=== PATIENT | male | born 1935 | race Caucasian/White ===

== ENCOUNTER → 2023-07-27 09:44 | Outpatient (REF) | payer OTHER, SELFPAY | LOC: HWRCS 09:44 | PROVIDERS: ATTENDING PHYSICIAN Family Medicine | DX: R42 Dizziness and giddiness (principal); I51.89 Other ill-defined heart diseases | CPT/HCPCS: 93306 ==

== ENCOUNTER → 2023-09-03 12:36 | Outpatient (REF) | payer OTHER, SELFPAY | LOC: RAD 12:36 | PROVIDERS: ATTENDING PHYSICIAN Family Medicine | DX: H54.7 Unspecified visual loss (principal); G25.0 Essential tremor | CPT/HCPCS: 70450 ==

== ENCOUNTER → 2023-09-21 12:29 | Outpatient (REF) | payer OTHER, SELFPAY | LOC: HWRAD 12:29 | PROVIDERS: ATTENDING PHYSICIAN Family Medicine | DX: H54.7 Unspecified visual loss (principal) | CPT/HCPCS: 93880 ==

== ENCOUNTER → 2023-10-12 11:37 | Outpatient (REF) | payer OTHER, SELFPAY | LOC: RAD 11:37 | PROVIDERS: ATTENDING PHYSICIAN Surgery Vascular Surgery; FAMILY PHYSICIAN Family Medicine | DX: I65.23 Occlusion and stenosis of bilateral carotid arteries (principal) | CPT/HCPCS: 70496; 70498; Q9967 ==

== ENCOUNTER 2023-11-01 09:03 | Inpatient (IN) | payer OTHER, SELFPAY ==
[2023-10-25 09:35] LABS: % Basophils 0.7 % (0-2); % Eosinophils 1.8 % (0-6); % Immature Granulocytes 0.3 % (0-0.5); % Lymphocytes 19.1 % (20.5-51.1); % Monocytes 8.1 % (1.7-9.3); Absolute Basophils 0.1 10^3/uL (0-0.2); Absolute Eosinophils 0.1 10^3/uL (0-0.7); Absolute Lymphocytes 1.3 10^3/uL (1.2-3.4); Absolute Monocytes 0.6 10^3/uL (0.1-0.6); Absolute Neutrophils 4.8 10^3/uL (1.4-6.5); Hematocrit 42.1 % (39.0-52.0); Hemoglobin 14.4 g/dL (13.0-18.0); Mean Corp Hgb Conc. 34.2 g/dL (33.0-37.0); Mean Corpuscular Hgb 30.3 pg (27.0-31.0); Mean Corpuscular Volume 88.6 fL (80.0-94.0); Mean Platelet Volume 11.1 fL (7.4-10.4); Nucleated Red Blood Cells % 0 % (-); Platelet Count 198 10^3/uL (130-400); Red Blood Cell Count 4.75 10^6/uL (4.70-6.10); Red Cell Dist. Width 13.4 % (11.5-14.5); White Blood Cell Count 6.8 10^3/uL (4.8-10.8)
[2023-10-25 09:47] LABS: INR 1.03; PT 13.5 Sec (11.4-14.6)
[2023-10-25 09:50] LABS: Blood Urea Nitrogen 22 mg/dl (9-20); Calcium 9.3 mg/dl (8.4-10.2); Carbon Dioxide 28 mmol/L (22-30); Chloride 105 mmol/L (98-107); Glucose 131 mg/dl (70-99); Potassium 4.9 mmol/L (3.5-5.1); Sodium 141 mmol/L (135-145); eGFR 52.84
[2023-10-25 12:20] VITALS: BMI 28.8
--- NOTE | 2023-10-26 09:56 | PTCARENOTE ---
Abnormal chest x-ray (10/25/23); Rosario at 's office was notified.
--- NOTE | 2023-10-26 15:33 | PTCARENOTE ---
Abnormal chest x-ray from 10/25/23 was reviewed by , no actions requested.
[2023-11-01] VITALS (17 sets, daily range): BP systolic 80–130; BP diastolic 34–81; BMI 27.3
[2023-11-01] MEDS: BACTROBAN NASAL 1 GRAM NASAL (09:54)
[2023-11-01] MEDS: PERIDEX 0.12% ORAL RINSE 15 ML PO (09:54)
[2023-11-01] MEDS: VANCOCIN 300 MG IV (09:57)
[2023-11-01] MEDS: VANCOCIN 300 ML IV (09:57)
[2023-11-01] MEDS: NSS 500 IV (09:58)
--- NOTE | 2023-11-01 13:44 | W.SUR.PREOP ---
Pre-Operative Surgical Note
-
I have examined this patient prior to the performance of the scheduled procedure.
The patient's condition is unchanged from the time of the current History and
Physical and the patient is able to undergo the scheduled procedure.
--- NOTE | 2023-11-01 17:01 | W.SUR.POST ---
Surgical Immediate Post Op
Note
Pre Op Diagnosis: Carotid stenosis
Post Op Diagnosis: Carotid stenosis
Procedure Performed: Right carotid endarterectomy with bovine pericardial patch angioplasty with EEG monitoring
Primary Surgeon: Hong Martinez MD
Assist: Mare Lopez FREIGHT RATE CLERK-C
Anesthesia: GETA
Estimated Blood Loss: 20 mL
Fluids: See anesthesia flowsheet
Drains/Shunts: N/A
Specimens/Cultures: Right carotid plaque
Doppler/Duplex/Angio (Y/N): Y
Complications: None
Operative Findings: Upon waking from anesthesia patient obeyed commands in bilateral upper and lower extremities
[2023-11-01] MEDS: NSS 1000 IV (17:37)
[2023-11-01 17:42] LABS: Glucose - Point of Care 134 mg/dl (70-99)
[2023-11-01 17:43] LABS: Hematocrit 37.6 % (39.0-52.0); Mean Corp Hgb Conc. 34.6 g/dL (33.0-37.0); Mean Corpuscular Hgb 30.4 pg (27.0-31.0); Mean Corpuscular Volume 87.9 fL (80.0-94.0); Mean Platelet Volume 10.2 fL (7.4-10.4); Platelet Count 174 10^3/uL (130-400); Red Blood Cell Count 4.28 10^6/uL (4.70-6.10); Red Cell Dist. Width 13.7 % (11.5-14.5); White Blood Cell Count 10.6 10^3/uL (4.8-10.8)
[2023-11-01 17:56] LABS: Blood Urea Nitrogen 16 mg/dl (9-20); Calcium 8.1 mg/dl (8.4-10.2); Carbon Dioxide 23 mmol/L (22-30); Chloride 109 mmol/L (98-107); Estimated Creatinine Clearance 51 ml/min; Glucose 142 mg/dl (70-99); Potassium 4.5 mmol/L (3.5-5.1); Sodium 137 mmol/L (135-145); eGFR > 60.00
[2023-11-01 17:58] LABS: INR 1.24; PT 15.6 Sec (11.4-14.6)
[2023-11-01 17:59] LABS: APTT 35.9 Sec (23.4-35.0)
--- NOTE | 2023-11-01 18:38 | PTCARENOTE ---
Received pt from PACU s/p R CEA. Neuro assessment WNL. Pt c/o mild R neck pain, refusing meds. SBP within goal range. 2L NC applied. Sinus bradycardia noted. L radial a-line correlating with NIBP. Oriented to ICU. at bedside. Plan of care
discussed.
--- NOTE | 2023-11-01 18:53 | OR.RPT ---
Operative Report
Operative Report
PROCEDURE DATE: 11/01/2023
Preoperative diagnosis: Symptomatic right carotid artery stenosis.
Postoperative diagnosis: Same
Procedure: Right carotid endarterectomy with bovine pericardial patch angioplasty and intraoperative EEG/SSEP monitoring.
Surgeon: Juan
Lead Nurse: Mare Lopez GUEST SERVICES MANAGER, required for all aspects of procedure including assistance with traction/countertraction, following of suture line, assistance with closure.
Complications: None
Anesthesia: General
Indications for procedure:
Symptomatic right carotid stenosis with repeated episodes of amaurosis. Risk/benefits/alternatives of revascularization were also discussed. Patient understood all wish to proceed with right carotid endarterectomy.
Description of procedure:
Patient was identified brought to the operating room placed on the table in supine position. After the adequate administration of anesthesia and perioperative antibiotics he was prepped and draped in the standard surgical fashion. A standard
preoperative timeout was undertaken and everybody was in agreement the plan. A standard longitudinal incision was made in the right neck that was carried through the skin subcutaneous tissue. Using the electrocautery dissection was carried through
the platysma muscle layer and then alongside the anterior medial border of the sternocleidomastoid muscle. Then using a combination of sharp dissection with the Metzenbaum scissors and electrocautery I dissected along the anterior medial border of
the internal jugular vein. The common facial vein branch was ligated between silk ties and then divided. In addition there was a second smaller vein branch just caudad that was also ligated between silk ties and divided. I then deepened my
retraction. The common carotid artery was identified and carefully dissected away from the surrounding structures take great care to avoid any injury to the structures. A vessel loop was passed around it which was double looped, but not yet
tightened. Note the vagus nerve was clearly visualized and protected from harm's way. I then continued my dissection up the common carotid artery to the bulb staying only on the anterior surface of the carotid artery. Then I carried the
dissection up to the internal carotid artery and then to the distal internal carotid artery. I identified where it was soft and carefully circumferentially dissected the internal carotid artery with minimal mobilization and passed a vessel loop
around it. Note where I dissected to be soft, was beyond the main plaque in the proximal internal carotid artery as well as a secondary plaque about a centimeter distal to that as noted on the CT scan. I was sure to gain exposure distal to that
aspect. Note the hypoglossal nerve was not visualized in her field, and was felt to be more cephalad. The patient was given an appropriate dose of heparin 8500 units. Next I dissected the anterior surface of the external carotid artery and
superior thyroid branches. These were then carefully circumferentially dissected with minimal mobilization and vessel loops passed around these which were double looped but not yet tightened. After 3 minutes of heparin circulation time and
confirmation of optimization of the blood pressure with my anesthesiology colleagues, I clamped the distal internal carotid artery where it was soft. There was no immediate EEG or SSEP changes. After 1 minute of test clamp time there was no
changes noted. Therefore at this point, the vessel loops on the external carotid artery and superior thyroid branches were tightened and the common carotid artery was clamped where it was soft proximally. An arteriotomy was made on the common
carotid artery with an 11 blade and extended using a Spence scissor. I extended the arteriotomy onto the mid to distal internal carotid artery. There was a mixed plaque with heavy calcified portions peripherally and slightly softer centrally
resulted in a significant stenosis. A [place] was then used to endarterectomized the plaque. An endarterectomy plane was created, and the plaque was then endarterectomized. Distally I feathered the plaque out to a nice clean endpoint in the distal
internal carotid artery. Next I endarterectomized the intima back to somewhat normal intima in the common carotid artery, and the intima was cut flush there. I then grasped the plaque and everted plaque out of the origin of the external carotid
artery. The plaque was then sent off for specimen. In order to get back to somewhat more normal intima on the common carotid artery, I had to dissect more proximally in the common carotid artery by extending my incision slightly as there was
friable plaque in the initial endpoint. Once I did this and reposition my clamp slightly more proximally, I was then able to achieve a better endpoint that was nicely adherent. The origin of the external carotid artery was carefully visualized and
any fine debris were removed with fine forceps. Proximal and distal endpoints were then carefully inspected. Any fine debris was removed with fine forceps, and the intima was noted to be nicely adherent proximally distally. Next any fine debris
were removed throughout the endarterectomy bed with fine forceps. Interrupted 7-0 Prolene tacking sutures were placed to tack the distal endpoint. I then flushed heparinized saline. I was very satisfied. Then, I used a bovine pericardial patch to
sew a long patch angioplasty with a running 6-0 Prolene suture. Prior to completing and tying down my suture line, I backbled sequentially each branch and reclamped each branch prior to unclamping the next branch. I then irrigated with heparinized
saline. Then I completed and tied down my suture line. We then restored flow in the common carotid and external carotid arteries. Finally, we released flow in the internal carotid artery. There was excellent pulsatile flow in all 3 vessels.
There was an excellent Doppler signal in the internal carotid artery distal to the patch with a good normal low resistance Doppler signal. There was a good Doppler signal in the external carotid artery as well. 6-0 Prolene [id number] sutures
were placed along any bleeding points along the suture line. Protamine was given to reverse the heparin. Hemostasis was completely achieved. We then irrigated and confirmed full hemostasis. I then closed in layers with 2-0 Vicryl layer to
reapproximate the sternocleidomastoid muscle, followed by 3-0 Vicryl platysma muscle running layer, followed by 4 Monocryl subcuticular stitch. Dermabond was applied. The patient tolerated procedure well. He awoke moving all extremities to
command with tongue in the midline.
[2023-11-01] MEDS: HEPARIN 5000 UNITS SC (19:41)
[2023-11-01] MEDS: NEO-SYNEPHRINE 250 IV (19:41)
[2023-11-01] MEDS: ROXICODONE 5 MG PO (19:42)
--- NOTE | 2023-11-01 20:00 | PTCARENOTE ---
pt AAOx4, neuro assessment Q1H WNL, c/o discomfort to R neck, PRN meds given see ALBERT, SB on monitor, Layla in place and zeroed, BP with systolic 88, Nicholas was started per orders, 2L NC, denies SOB, 1800 diabetic diet, +BS, urinal at bedside voided 350
at change of shift, R neck surgical incision intact with dermabond, call rizo in reach.
[2023-11-01] MEDS: SYMBICORT 80/4.5 MCG INHALER INH (20:58)
[2023-11-01 21:51] LABS: Glucose - Point of Care 162 mg/dl (70-99)
[2023-11-02] VITALS (22 sets, daily range): BP systolic 86–126; BP diastolic 36–92; BMI 28.4
--- NOTE | 2023-11-02 | PTCARENOTE ---
no changes from prior assessment, pt denies pain and SOB, neuro checks remain WNL, [place] zeroed and remains on initial dose amy, call rizo in reach.
--- NOTE | 2023-11-02 04:00 | PTCARENOTE ---
no change from prior assessment/note.
[2023-11-02 04:18] LABS: Hematocrit 38.5 % (39.0-52.0); Hemoglobin 13.3 g/dL (13.0-18.0); Mean Corp Hgb Conc. 34.5 g/dL (33.0-37.0); Mean Corpuscular Hgb 30.7 pg (27.0-31.0); Mean Corpuscular Volume 88.9 fL (80.0-94.0); Mean Platelet Volume 10.4 fL (7.4-10.4); Platelet Count 214 10^3/uL (130-400); Red Blood Cell Count 4.33 10^6/uL (4.70-6.10); Red Cell Dist. Width 13.7 % (11.5-14.5); White Blood Cell Count 9.7 10^3/uL (4.8-10.8)
[2023-11-02 04:30] LABS: INR 1.17; PT 14.9 Sec (11.4-14.6)
[2023-11-02 04:31] LABS: APTT 35.7 Sec (23.4-35.0)
[2023-11-02 04:44] LABS: Blood Urea Nitrogen 19 mg/dl (9-20); Calcium 8.8 mg/dl (8.4-10.2); Carbon Dioxide 20 mmol/L (22-30); Chloride 108 mmol/L (98-107); Estimated Creatinine Clearance 46 ml/min; Glucose 141 mg/dl (70-99); Potassium 4.6 mmol/L (3.5-5.1); Sodium 136 mmol/L (135-145); eGFR > 60.00
[2023-11-02] MEDS: SYNTHROID 88 MCG PO (05:36)
[2023-11-02] MEDS: NSS 1000 IV (05:36)
--- NOTE | 2023-11-02 07:11 | CON.INTV ---
Consultation
Consultation Request
Date/Time Consultation Requested: 11/01/23
Date/Time Consultation Performed: 11/02/23
Performing Provider: Lisa
Reason for Consultation: ICU
Medical History
-
History of Present Illness:
Patient is a 88-year-old male with previous history of hypertension, pulmonary fibrosis post COVID, bilateral carotid stenosis presenting for elective carotid endarterectomy. He has noted symptoms including right eye visual changes but denies any
previous CVA or TIA history. Underwent procedure 11/01/23 without complication. Postoperatively, admitted to ICU for further management.
Past Medical History
Past Medical History: Other (see list below)
Social History
Tobacco: Non-smoker
Alcohol: None
Drug: None
Family History
Family History: Reviewed & Not Pertinent
Allergies / Home Medications
Allergies
Allergy/AdvReac Type Severity Reaction Status Date / Time
Penicillins Allergy Rash Verified 10/24/23 08:23
Home Medications
�Medication �Instructions �Recorded �Confirmed �Last Taken �Type
bupropion HCl 100 mg tablet 100 mg PO TID mental health 09/05/21 11/01/23 10/31/23 20:00 History
levothyroxine 88 mcg tablet 88 mcg PO DAILY AT 0700 Thyroid 09/05/21 11/01/23 11/01/23 07:30 History
tamsulosin 0.4 mg capsule 0.4 mg PO DAILY Urinary issue 09/05/21 11/01/23 10/31/23 07:30 History
albuterol sulfate 90 mcg/actuation 2 puff inhalation Q6H PRN SOB 03/12/23 11/01/23 Unknown History
aerosol inhaler
fluticasone fur. 100 mcg-umeclid 1 inh inhalation PRN PRN SOB 03/12/23 10/24/23 Unknown History
62.5 mcg-vilant 25 mcg
inhalat.powder (Trelegy Ellipta)
omeprazole 20 mg capsule,delayed 20 mg PO DAILY 03/12/23 11/01/23 11/01/23 07:30 History
release
rosuvastatin 20 mg tablet 20 mg PO DAILY 03/12/23 11/01/23 10/31/23 07:30 History
Mullein 1 cap PO BID Respiratory 10/24/23 10/24/23 Unknown History
aspirin 81 mg chewable tablet 81 mg PO DAILY Blood Clot 11/01/23 11/01/23 Unknown History
Prevention/Tx
diazepam 5 mg tablet 5 mg PO BIDPRN PRN anxiety 11/01/23 11/01/23 Unknown History
metformin 500 mg tablet,extended 500 mg PO QPM Diabetes 11/01/23 11/01/23 10/31/23 History
release 24 hr
Review of Systems
Vitals / Labs / Diagnostic Testing
Vital Signs
Temp Pulse Resp BP Pulse Ox
98.1 F 56 14 112/53 98
11/02/23 03:12 11/02/23 06:45 11/02/23 06:45 11/02/23 00:00 11/02/23 06:45
Lab Data
11/02/23 04:11
11/02/23 04:11
Laboratory Results
11/01/23 11/02/23
17:36 04:11
PT 15.6 H 14.9 H
INR 1.24 1.17
APTT 35.9 H 35.7 H
Diagnostic Testing:
Physical Exam
-
HEENT: Normocephalic, Anicteric and Moist Mucous Membranes
Cardiovascular: S1/S2 and Regular Rhythm
Respiratory: Clear and Non-Labored Respirations
GI: Soft, Non Distended and Non Tender
Neurology: Awake, Alert, Oriented, AO x 3 and No Motor Deficits
Skin: Warm, Dry and Good Color
General: Comfortable and Other (NAD)
Assessment
-
Patient is a 88-year-old male with previous history of hypertension, pulmonary fibrosis post COVID, bilateral carotid stenosis presenting for elective carotid endarterectomy. He has noted symptoms including right eye visual changes but denies any
previous CVA or TIA history. Underwent procedure 11/01/23 without complication. Postoperatively, admitted to ICU for further management.
Bilateral carotid disease status post right CEA 11/01/2023
Amaurosis fugax
Hyperglycemia
Conditions [employer]:
COVID infection July 2021
COPD, last seen Dr Vanessa 09/16/23, maintained on Trelegy 200
Pulmonary fibrosis
Hypothyroidism
Depression
Knee replacement
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
Former smoker
Allergy to penicillins
Plan:
Patient is s/p R CEA by vascular surgery service, POD #1
Continue observation following procedure
Follow neurovascular checks per protocol
Follow BP monitoring and parameters as set by primary team
Cardiac history noted
Monitor on telemetry
Pain control per protocol
RASS goal 0
Prior history of pulmonary disease includes ILD, COPD
CXR reviewed indicating no acute disease/minimal subpleural fibrosis noted
Can resume home inhalers
Prior PFTs reviewed indicating stake mild obstruction, but excellent for his age
Encouraged IS
Diet advancement per protocol
Aspiration precautions
GI prophylaxis if indicated for stress ulcer prevention in the critically ill
Creat at baseline, follow UO
Critical I/Os
Void trials
Replete electrolytes as needed
No signs/symptoms suspicious for infectious etiology at this time
Will observe off antibiotics for now
Follow temperatures/CBC
Hb and platelets postoperatively stable
DVT prophylaxis recommended if not contraindicated based on procedural history -- heparin SQ and mechanical SCDs
Encouraged OOB/PT/OT/ambulation once cleared by surgical team
Discharge planning per team
Diagnostic Data
Chest X-Ray 11/01/23- No acute cardiopulmonary process.
05-05 (portable) c/w 05-02 (PA/lat): Initial films with increased reticular pattern at R field, R>L diffuse GG like infiltrate, and L basilar anterocardial fibrotic changes. Current films with less dense GG at R field.
CTA chest 09-08: IMPRESSION: There is no pulmonary embolism. There are moderate predominantly subpleural emphysematous changes throughout both lungs. There is moderate predominantly subpleural interstitial airspace disease throughout the lower two
thirds of the right hemithorax as well as in the lingula which more likely is chronic fibrosis than acute pneumonia.
MY REVIEW: agree with above, I will add that considering reported COVID infection in July 2021, the above findings will reflect rather more chronic etiology, most likely ill-defined ILD (not IPF/UIP) superimposed to emphysema and trace evidence of
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
LUCAS doppler: N/A
Echo: 07/27/23- Normal left ventricular size and systolic function. Mild concentric left ventricular hypertrophy. No regional wall motion abnormalities are seen. LV ejection fraction is 55-60% by visual assessment. Normal diastolic function. Normal
right ventricular size and function. Moderate aortic stenosis. Peak/mean gradients across the aortic valve are 36/19 mmHg. The aortic valve by the Continuity equation is calculated at 1.0 cm sq using an LVOT diameter of 2.1 cm. Compared to the
previous echo 11/23/21, there is little significant change.
PFT's: 09/25/23: FEV1 2.19L 96%, FVC 3.68L 110%, ratio 0.59 (mild obstruction)
PFT 2022 DLCO 47%, 6MWT O2 miriam 96% on RA
Reports and relevant images were personally reviewed.
-----
Critical Care time 55 mins -- The patient is admitted for acute critical illness for the treatment of vital organ failure and/or prevention of further life-threatening conditions. Total care includes time spent in review of history, physical exam,
medications, hemodynamic/ventilator parameters, laboratory data, imaging and discussion with house staff, pharmacy, respiratory therapy, tax director, and nursing.
[2023-11-02] MEDS: SPIRIVA RESPIMAT 2.5 MCG 2 PUFF INH (07:18)
[2023-11-02] MEDS: SYMBICORT 80/4.5 MCG INHALER 2 PUFF INH (07:18)
[2023-11-02 07:37] LABS: Glucose - Point of Care 121 mg/dl (70-99)
[2023-11-02] MEDS: FLOMAX 0.400000000000000022 MG PO (07:46)
[2023-11-02] MEDS: CRESTOR 20 MG PO (07:46)
[2023-11-02] MEDS: PROTONIX 40 MG PO (07:46)
[2023-11-02] MEDS: WELLBUTRIN XL (24 hour extended release) 150 MG PO (07:46)
[2023-11-02] MEDS: HEPARIN 5000 UNITS SC (07:47)
--- NOTE | 2023-11-02 08:42 | W.PN.VS ---
Addendum entered and electronically signed by Hong Martinez MD 11/02/23 11:44:
Seen and examined with OSIEL Lopez earlier today. This is a late entry. Agree with findings as noted below. Patient was without significant complaints. Right neck incision clean dry and intact, neck is soft, no hematoma. Neurologically no focal
deficits, moves all extremities well, tongue midline. Plan/as discussed and noted below.
Original Note:
Today's Communication / Plan
-
Patient seen and examined at bedside with Dr. Hong Martinez, below plan reviewed with attending
Assessment/Plan
-
Assessment: 88-year-old male POD #1 right carotid endarterectomy
Plan:
Discontinue arterial line once Ayaz-Synephrine weaned off as patient tolerates
Advanced diet to diabetic
OOB to chair with progression ambulation as tolerated
Discontinue IV fluids
Possible discharge later today
Subjective Data
-
Date of Service: November 02, 2023
Patient seen and examined at bedside, offers no complaints. Denies nausea, vomiting, fever, and chills. Tolerating p.o. liquids. Denies unilateral weakness, vision changes, speech abnormalities, and headache.
Objective Data
-
Vital Signs
Temp Pulse Resp BP Pulse Ox
97.8 F 77 20 112/53 98
11/02/23 07:49 11/02/23 07:20 11/02/23 07:20 11/02/23 00:00 11/02/23 07:20
Intake and Output
11/01/23 11/02/23 11/03/23
06:59 06:59 06:59
Intake Total 990 / 990
Output Total 850 / 850
Balance 140 / 140
Intake:
Oral fluids 30 / 30
IV fluids (Total) 960 / 960
AYAZ 60 / 60
NSS 900 / 900
Output:
Urine, Voided 850 / 850
Lab Results
11/02/23 04:11
11/02/23 04:11
Calcium 8.8 mg/dl (8.4-10.2) 11/02/23 04:11
Physical Exam
-
No apparent distress, resting in bed comfortably
Right neck incision CDI, no evidence of hematoma, face symmetrical, tongue midline
No tachycardia
No dyspnea on room air
ABD nontender and nondistended
Bilateral upper extremities and lower extremities with equal strength
[2023-11-02 11:52] LABS: Glucose - Point of Care 101 mg/dl (70-99)
--- NOTE | 2023-11-02 12:07 | CM ---
CM following re: discharge planning.
Discussed in Rounds, reviewed pt's chart, met with pt.
Pt is an 88 year old male, admitted with primary dx of POD #1 right carotid endarterectomy.
Pt reports he lives with spouse in a rancher style house, 5+6 steps to enter, has 2 supportive children. 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 No DME, VN or SNF history.
Per Vascular surgery, pt most likely will be discharged home today. pt is awre and he stated his BP runs low and it is his baseline. IMM reviewed, placed on chart, pt has a copy.
PCP: Caroline Mendoza
Pharmacy: [facility]
D/C plan: home no needs. Spouse to transport.
--- NOTE | 2023-11-02 12:17 | PTCARENOTE ---
pt awake and alert , NSR on monitor, BP 136/58 on phenylephrine gtt the am , he was weaned off at 0930 , his current blood pressure is 87/48 , he stated he does not drink much at home and prior to his surgery he spent the day outside mowing his
lawn and had only 3 bottles of water, he also states his normal systolic blood pressure at home is 90s to 100 , he is encouraged to drink fluids , he denies co dizziness or light headiness, he is oob in chair and stood without any difficulty , he
is ordered phenylephrine gtt for SBP < 90 will continue to monitor BPs and restart vasopressor if needed , pt at bedside , pt R neck incision is soft , tender to palpation and intact no ecchymosis or hematoma
--- NOTE | 2023-11-02 12:48 | PTCARENOTE ---
recent BP 99/62, pt continues to be oob in chair , at bedside and updated on current plan of care and condition
--- NOTE | 2023-11-02 15:05 | PTCARENOTE ---
pt ambulated hallway with assistance , pt BP 99/85
--- NOTE | 2023-11-02 15:42 | W.DS.TRANS ---
DC Summary - Housekeeping Coordinator
-
Discharge Instructions:
Discharge Diagnosis/Procedures Right carotid endarterectomy
Diet As tolerated
Activity No strenuous activity
Driving Restrictions Not until seen by your Dr
Bathing Restrictions OK to Shower
Instructions:
Stand-Alone Forms: DC Instr - Vascular OR
Changes to Home Medications: No
Discharge Medications:
DC Medications w/original date entered in [employer]
bupropion HCl 100 mg tablet 100 mg PO TID mental health 09/05/21
levothyroxine 88 mcg tablet 88 mcg PO DAILY AT 0700 Thyroid 09/05/21
tamsulosin 0.4 mg capsule 0.4 mg PO DAILY Urinary issue 09/05/21
albuterol sulfate 90 mcg/actuation aerosol inhaler 2 puff inhalation Q6H PRN SOB 03/12/23
fluticasone fur. 100 mcg-umeclid 62.5 mcg-vilant 25 mcg inhalat.powder (Trelegy Ellipta) 1 inh inhalation PRN PRN SOB 03/12/23
omeprazole 20 mg capsule,delayed release 20 mg PO DAILY Gastrointestinal Issue 03/12/23
rosuvastatin 20 mg tablet 20 mg PO DAILY High Cholesterol 03/12/23
Mullein 1 cap PO BID Respiratory 10/24/23
aspirin 81 mg chewable tablet 81 mg PO DAILY Blood Clot Prevention/Tx 11/01/23
diazepam 5 mg tablet 5 mg PO BIDPRN PRN anxiety 11/01/23
metformin 500 mg tablet,extended release 24 hr 500 mg PO QPM Diabetes 11/01/23
Home Medication Changes
Pending Results: No
--- NOTE | 2023-11-02 15:57 | PTCARENOTE ---
pt written for DC to home , pt and given DC instructions , both verbalized understanding , IV sites DC
== END 2023-11-02 16:13 | disposition home or self-care (01) | DRG 39 ==
LOC: ICU 09:03
PROVIDERS: Nurse Practitioner; ADMITTING PHYSICIAN Surgery Vascular Surgery; CONSULT PHYSICIAN Internal Medicine; FAMILY PHYSICIAN Family Medicine
PROC: 03UH0KZ Supplement Right Common Carotid Artery with Nonautologous Tissue Substitute, Open Approach (ICD-10-PCS; 2023-11-01)
PROC: 03CH0ZZ Extirpation of Matter from Right Common Carotid Artery, Open Approach (ICD-10-PCS; 2023-11-01)
DX: I65.21 Occlusion and stenosis of right carotid artery (principal); I10 Essential (primary) hypertension; U09.9 Post COVID-19 condition, unspecified; J84.10 Pulmonary fibrosis, unspecified; E03.9 Hypothyroidism, unspecified; F32.A Depression, unspecified; J44.9 Chronic obstructive pulmonary disease, unspecified; R73.9 Hyperglycemia, unspecified; Z87.891 Personal history of nicotine dependence; Z79.82 Long term (current) use of aspirin
CPT/HCPCS: 88304; 88311; 35301; 36415; 71045; 71046; 80048; 82962; 85025; 85027; 85610; 85730; 86850; 86900; 86901; 87070; 93005; 94640; 95938; 95941

== ENCOUNTER → 2023-12-25 10:19 | Outpatient (REF) | payer OTHER, SELFPAY | LOC: RAD 10:19 | PROVIDERS: ATTENDING PHYSICIAN Physician Assistant; OTHER PHYSICIAN Surgery Vascular Surgery | DX: I65.29 Occlusion and stenosis of unspecified carotid artery (principal) | CPT/HCPCS: 93880 ==

== ENCOUNTER → 2024-03-23 06:39 | Outpatient (REF) | payer OTHER, SELFPAY | LOC: MRI 06:39 | PROVIDERS: ATTENDING PHYSICIAN Family Medicine | DX: M54.50 Low back pain, unspecified (principal); R29.898 Other symptoms and signs involving the musculoskeletal system | CPT/HCPCS: 72148 ==

== ENCOUNTER → 2024-04-11 14:10 | Outpatient (REF) | payer OTHER, SELFPAY | LOC: HWRAD 14:10 | PROVIDERS: ATTENDING PHYSICIAN Family Medicine | DX: R93.429 Abnormal radiologic findings on diagnostic imaging of unspecified kidney (principal) | CPT/HCPCS: 76775 ==

== ENCOUNTER → 2024-04-18 10:38 | Outpatient (REF) | payer OTHER, SELFPAY | LOC: RAD 10:38 | PROVIDERS: ATTENDING PHYSICIAN Family Medicine | DX: I73.9 Peripheral vascular disease, unspecified (principal) | CPT/HCPCS: 93922; 93925 ==

== ENCOUNTER 2024-05-14 11:28 | Outpatient (RCR) | payer OTHER, SELFPAY | END 2024-05-14 23:59 | disposition home or self-care (01) | LOC: RPT 11:28 | PROVIDERS: ATTENDING PHYSICIAN Orthopaedic Surgery Orthopaedic Surgery of the Spine; FAMILY PHYSICIAN Family Medicine | DX: M48.062 Spinal stenosis, lumbar region with neurogenic claudication (principal); Z73.6 Limitation of activities due to disability; R26.2 Difficulty in walking, not elsewhere classified; M62.81 Muscle weakness (generalized) | CPT/HCPCS: 97010; 97110; 97112; 97162 ==

== ENCOUNTER 2024-06-19 10:48 | Outpatient (RCR) | payer OTHER, SELFPAY | END 2024-06-19 23:59 | disposition home or self-care (01) | LOC: RPT 10:48 | PROVIDERS: ATTENDING PHYSICIAN Orthopaedic Surgery Orthopaedic Surgery of the Spine; FAMILY PHYSICIAN Family Medicine | DX: M48.062 Spinal stenosis, lumbar region with neurogenic claudication (principal); Z73.6 Limitation of activities due to disability; R26.2 Difficulty in walking, not elsewhere classified; M62.81 Muscle weakness (generalized) | CPT/HCPCS: 97010; 97110 ==

== ENCOUNTER → 2024-07-14 07:33 | Outpatient (REF) | payer OTHER, SELFPAY | LOC: RAD 07:33 | PROVIDERS: ATTENDING PHYSICIAN Surgery Vascular Surgery; FAMILY PHYSICIAN Family Medicine | DX: I65.23 Occlusion and stenosis of bilateral carotid arteries (principal) | CPT/HCPCS: 93880 ==

== ENCOUNTER 2024-08-16 08:46 | Emergency (ER) | payer OTHER, SELFPAY ==
[2024-08-16 08:49] VITALS: BP 131/92
--- NOTE | 2024-08-16 09:44 | ED.GENMED ---
History of Present Illness
General
Chief Complaint: Flank Pain
Time Seen by Provider: 08/16/24 09:08
History of Present Illness
History of Present Illness:
Patient is a 89-year-old male with history of hyperlipidemia, COPD, BPH presenting to the emergency department with flank pain. Patient states that yesterday he did move driving lawnmower out of the garage. He did not think anything of it. Then
last night around 1 AM he woke up with left-sided flank pain. Initially radiated to his abdomen. They put ice and heat which did improve the symptoms. However he still feels this residual pain so he came to the emergency department. No fevers
chills. No urinary symptoms. No hematuria. No nausea or vomiting. No diarrhea.
Past History
Past History
ED Past Medical History: Hypothyroidism and Psychiatric (Depression)
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
Social History
Tobacco: Former smoker
Alcohol: None
Drug: None
Phy Exam
Physical Exam
Physical Exam:
GENERAL: in no acute distress
HEENT: normocephalic, extraocular movements intact, moist oral mucosa
NECK: normal inspection
RESPIRATORY: no respiratory distress, clear to auscultation bilaterally
CARDIOVASCULAR: regular rate and rhythm
ABDOMEN/: soft, non-distended, non-tender to palpation, no rebound or guarding, no rash to the left flank, reproducible tenderness to the left flank
EXTREMITIES: non-tender, no edema/swelling
NEUROLOGIC: awake and alert, moves all extremities
SKIN: warm
Course
Orders/Labs/Results
Orders:
Orders
08/16/24 09:43
CT Abd/pelvis W Iv Cont Urgent
Comment:
Reason For Exam: left flank pain
Ketorolac [Toradol] 15 mg IV NOW STA
08/16/24 09:46
Basic Metabolic Panel Urgent
08/16/24 09:47
Complete Blood Count/With Diff Urgent
08/16/24 10:56
Urinalysis Reflex To Culture Urgent
Date Specimen was Collected: 08/16/24
Time Specimen was Collected: 10:55
Urine Microscopic Reflex Cult Urgent
Urine Culture Urgent
WALTER Source: U
Specimen Description:
Date Specimen was Collected: 08/16/24
Time Specimen was Collected: 10:55
08/16/24 11:15
0.9% Sodium Chloride 1000 ml [Nss] 1,000 ml IV BOLUS
Abnormal Lab Results
08/16/24 08/16/24 08/16/24
09:46 09:47 10:56
MPV 10.7 H fL
(7.4-10.4)
Absolute Neuts (auto) 6.6 H 10^3/uL
(1.4-6.5)
Absolute Monos (auto) 0.7 H 10^3/uL
(0.1-0.6)
Lymphocytes % 16.1 L %
(20.5-51.1)
BUN 27 H mg/dl
(9-20)
Creatinine 1.6 H mg/dL
(0.7-1.3)
Glucose 166 H mg/dl
(70-99)
Ur Occult Blood Reflex 3+ A
(Negative)
Urine RBC 3-6 A /HPF
(0-2)
Urine Bacteria (Reflex) Many A
(Negative)
08/16/24 09:47
08/16/24 09:46
Vital Signs
Initial and Last Documented VS:
Initial Vital Signs
Temp Pulse Resp BP Pulse Ox
98 F 111 20 131/92 94
08/16/24 08:49 08/16/24 08:49 08/16/24 08:49 08/16/24 08:49 08/16/24 08:49
Last Documented Vital Signs
Temp Pulse Resp BP Pulse Ox
98 F 111 20 131/92 94
08/16/24 08:49 08/16/24 08:49 08/16/24 08:49 08/16/24 08:49 08/16/24 08:49
MDM/Problems Addressed
Differential Diagnosis Includes:
89-year-old man presenting to the emergency department with left flank pain that occurred after moving something heavy. Vitals are unremarkable exam does show reproducible tenderness. Concern for musculoskeletal strain however also consider
possible kidney stone/urine infection. Considered aortic pathology the patient is very well-appearing with normal vital signs and pain did improve. Will check blood work urinalysis and obtain CT scan. Will give Toradol and fluids
*Critical Care Note
Total Time (30-74mins, 75-104mins- exclusive of procedures): Not Applicable
Update Note
Update Note:
Urine does show hematuria. He does have moderate bacteria. Creatinine is slightly elevated. CT scan per my interpretation with small stone in the left UVJ. Per the official read is 3 mm with mild hydroureteronephrosis. Given the elevated
creatinine, stone and bacteria in the urine I did discuss with urology who is in agreement with discharge with outpatient antibiotics. Strict return precautions given to patient which included fevers chills new urinary symptoms or worsening pain.
Patient advised to strain urine and follow-up with urology as needed. Patient also advised to have repeat creatinine function checked by PCP
ED Attending Note
-
Portions of this chart may have been created with voice recognition software.� Occasional wrong word or��sound alike� substitutions may have occurred due to the inherent limitations of voice recognition software.
Discharge Plan
Departure
Patient Disposition: Home (Routine Discharge)
Date of Disposition: 08/16/24
Time of Disposition: 13:29
Patient with high blood pressure during this ER visit?: No
Discharge Problem:
Calculus of ureterovesical junction (UVJ)
Instructions: Kidney Stones (DC), How to Strain Your Urine
Prescriptions:
New
cefdinir 300 mg capsule
300 mg PO BID 7 Days Qty: 14 0RF
No Action
bupropion HCl 100 MG tablet
100 mg PO TID
levothyroxine 88 MCG tablet
88 mcg PO DAILY AT 0700
tamsulosin 0.4 MG capsule
0.4 mg PO DAILY
omeprazole 20 mg Capsule,Delayed Release(Dr/Ec)
20 mg PO DAILY
albuterol sulfate 90 mcg/actuation Hfa Aerosol Inhaler
2 puff INHALATION Q6H PRN (Reason: SOB)
Patient Comments:
last used over a month ago
rosuvastatin 20 mg Tablet
20 mg PO DAILY
Trelegy Ellipta 100-62.5-25 mcg Blister With Device
1 inh INHALATION PRN PRN (Reason: SOB)
Patient Comments:
last taken over a month ago
[place]
1 cap PO BID
aspirin 81 mg Tablet,Chewable
81 mg PO DAILY
diazepam 5 mg Tablet
5 mg PO BIDPRN PRN (Reason: anxiety)
metformin 500 mg Tablet Extended Release 24 Hr
500 mg PO QPM
Referrals:
Caroline Rivers DO [Family Provider] -
Julio Cesar Marsh MD [Active] - As needed
Activity Restrictions/Additional Instructions:
You were seen in the Emergency Department today for flank pain. While you were here we performed blood work, which did show your creatinine was 1.6. This is slightly higher than your normal creatinine. Please be sure you follow-up with your PCP to
have blood work repeated to make sure your kidney function improves. You were also found to have a small kidney stone. Please strain your urine. We did start you on antibiotic for a possible urine infection. Please take the antibiotics as
prescribed. Please follow-up with the urologist Dr. Marsh and call them on Sunday for an appointment.
We would like for you to follow up with your primary care physician for further evaluation. If you experience fever, worsening of your symptoms, or develop any other new or concerning symptoms, please return to the Emergency Department immediately.
Please see the attached sheet for additional information.
Interventions
Interventions:
*Risk Screen - Suicide Last Done: 08/16/24 08:49
Discharge Date and Time
Print Language: [email or web address]
[2024-08-16 10:13] VITALS: BP 152/82; BMI 30.8
[2024-08-16 10:25] LABS: % Basophils 0.9 % (0-2); % Immature Granulocytes 0.2 % (0-0.5); % Lymphocytes 16.1 % (20.5-51.1); % Monocytes 7.8 % (1.7-9.3); Absolute Basophils 0.1 10^3/uL (0-0.2); Absolute Eosinophils 0.1 10^3/uL (0-0.7); Absolute Lymphocytes 1.4 10^3/uL (1.2-3.4); Absolute Monocytes 0.7 10^3/uL (0.1-0.6); Absolute Neutrophils 6.6 10^3/uL (1.4-6.5); Hematocrit 42.9 % (39.0-52.0); Hemoglobin 14.7 g/dL (13.0-18.0); Mean Corp Hgb Conc. 34.3 g/dL (33.0-37.0); Mean Corpuscular Volume 90.5 fL (80.0-94.0); Mean Platelet Volume 10.7 fL (7.4-10.4); Nucleated Red Blood Cells % 0 % (-); Platelet Count 187 10^3/uL (130-400); Red Blood Cell Count 4.74 10^6/uL (4.70-6.10); Red Cell Dist. Width 13.7 % (11.5-14.5); White Blood Cell Count 8.9 10^3/uL (4.8-10.8)
[2024-08-16 10:48] LABS: Blood Urea Nitrogen 27 mg/dl (9-20); Calcium 9.5 mg/dl (8.4-10.2); Carbon Dioxide 25 mmol/L (22-30); Chloride 107 mmol/L (98-107); Estimated Creatinine Clearance 33 ml/min; Glucose 166 mg/dl (70-99); Potassium 4.9 mmol/L (3.5-5.1); Sodium 140 mmol/L (135-145); eGFR 40.93
[2024-08-16] MEDS: TORADOL 15 MG IV (11:10)
[2024-08-16 11:19] LABS: Urine Albumin Negative (Neg - Trace); Urine Bilirubin Negative (Negative); Urine Character Clear (Clear); Urine Color Yellow; Urine Glucose Negative (Negative); Urine Ketone Negative (Negative); Urine Leukocyte Negative (Negative); Urine Nitrite Negative (Negative); Urine Occult Blood 3+ (Negative); Urine Urobilinogen Negative (Neg - 1+); Urine pH 6.5 (5.0-9.0)
[2024-08-16] MEDS: NSS 1000 IV (11:21)
[2024-08-16 11:51] LABS: Urine Bacteria Many (Negative); Urine Squamous Cell 0-2 /LPF (Few); Urine White Cell 0-2 /HPF (0-5)
[2024-08-16 12:06] VITALS: BP 144/56
[2024-08-16 13:00] VITALS: BP 152/74
[2024-08-16 14:00] VITALS: BP 139/61
[2024-08-16 14:22] VITALS: BP 132/82
== END 2024-08-16 14:45 | disposition home or self-care (01) ==
LOC: EMR 08:46
PROVIDERS: EMERGENCY PHYSICIAN Student in an Organized Health Care Education/Training Program; FAMILY PHYSICIAN Family Medicine
DX: N20.1 Calculus of ureter (principal); E78.00 Pure hypercholesterolemia, unspecified; J44.9 Chronic obstructive pulmonary disease, unspecified; N40.0 Benign prostatic hyperplasia without lower urinary tract symptoms; E03.9 Hypothyroidism, unspecified; F32.A Depression, unspecified; Z87.891 Personal history of nicotine dependence; Z96.659 Presence of unspecified artificial knee joint
CPT/HCPCS: 99284; 96374; 96361; 74177; 80048; 81003; 81015; 85025; 87086; Q9967